=== PATIENT | male | born 1940 | race Caucasian/White ===

== ENCOUNTER 2020-03-09 14:57 | Outpatient (CLI) | payer MEDICARE, OTHER, SELFPAY ==
--- NOTE | ~2020-03-09 | XR_ITS ---
XR hip RT min 2V DATE: 03/09/2020 15:21 INDICATION: Right hip pain for 6 months TECHNIQUE: AP, lateral, crosstable lateral views of right hip COMPARISON: None FINDINGS: No fracture or dislocation, avascular necrosis or bone destruction of the right hip. Right hip joint space is relatively well preserved. The pubic symphysis and included right sacroiliac joint are unremarkable. IMPRESSION: No significant abnormality of right hip Reviewed, dictated and finalized at location A.
== END 2020-03-09 14:58 | disposition home or self-care (01) ==
LOC: ANHIMG 15:01
PROVIDERS: PCP Internal Medicine; Visit Provider Internal Medicine
DX: M25.551 Pain in right hip (principal)
CPT/HCPCS: 73502

== ENCOUNTER → 2020-04-27 08:59 | Outpatient (CLI) | payer MEDICARE, OTHER, SELFPAY ==
--- NOTE | ~2020-04-27 | MR_ITS ---
EXAMINATION: MR lumbar spine wo con DATE: 04/27/2020 09:45 INDICATION: Radiculopathy, lumbar region. TECHNIQUE: Magnetic resonance imaging (MRI) of the lumbar spine was performed without intravenous con trast. Sequences included sagittal T2-weighted FSE, sagittal T2-weighted FS FSE, sagittal T1-weighted FSE, and axial T2-weighted FSE. COMPARISON: None FINDINGS: There is 22 degrees dextroscoliosis of thoracolumbar spine and 13 degrees levoscoliosis of lumbar spine. There is 3 mm anterolisthesis of L2 on L3 and L3 on L4. Vertebral body heights are norm al. There is severely decreased disc height at T12-L1, moderately decreased disc height at L1-L2, L2- L3, and L3-L4, and severely decreased disc height at L4-L5 and L5-S1. The distal spinal cord signal i ntensity is normal. The conus medullaris is at L1. The bladder is markedly distended. The following d isc levels are specifically discussed: L1-L2: The disc is bulging and has an annular fissure. There is moderate bilateral facet joint osteoa rthritis. There is mild right and moderate left neural foraminal stenosis. There is mild central kilo l stenosis. L2-L3: The disc is bulging and has an annular fissure. There is severe bilateral facet joint osteoart hritis. There is mild bilateral neural foraminal stenosis. There is mild central canal stenosis. L3-L4: The disc is bulging and has an annular fissure. There is severe bilateral facet joint osteoart hritis. There is mild bilateral neural foraminal stenosis. There is mild central canal stenosis. L4-L5: The disc is bulging and has an annular fissure. There is severe right and mild left facet join t osteoarthritis. There is mild right and moderate left neural foraminal stenosis. There is mild cent ral canal stenosis. L5-S1: The disc is bulging and has an annular fissure. There is mild bilateral facet joint osteoarthr itis. There is mild bilateral neural foraminal stenosis. There is no central canal stenosis. IMPRESSION: 1. Severe lumbar spondylosis. 2. Thoracolumbar dextroscoliosis and lumbar levoscoliosis. Reviewed, dictated and finalized at location B.
== END ==
PROVIDERS: PCP Internal Medicine; Visit Provider Orthopaedic Surgery
DX: M47.26 Other spondylosis with radiculopathy, lumbar region (principal)
CPT/HCPCS: 72148

== ENCOUNTER → 2020-09-29 09:45 | Outpatient (CLI) | payer MEDICARE, OTHER, SELFPAY ==
--- NOTE | ~2020-09-29 | MR_ITS ---
EXAMINATION: MR cervical spine wo con EXAM DATE: 09/29/2020 10:36 INDICATION: Myelopathy myelopathy. TECHNIQUE: Multi-sequential, multiplanar MR images of the cervical spine were obtained without contra st. Axial T2, axial T2 MERGE sequence. Sagittal T1, T2, T2 fat saturation images also obtained. Th ere is no prior study for comparison. FINDINGS: There is moderate disc disease at C5-6 and 6-7. Moderate multilevel upper thoracic disc di sease. There is 2 mm anterolisthesis C7 on T1. The spinal cord signal intensity and intrinsic morphol ogy is normal. Cervicomedullary junction is normal in appearance. There are no suspicious marrow sign al abnormalities. Paraspinal soft tissue is unremarkable. Level by level evaluation: C2-C3: Disc does not extend beyond the endplate margin. Uncovertebral joint arthropathy: Mild left. Facet joint arthropathy: Mild bilateral. Neural foraminal stenosis: No stenosis. Central canal stenosis: No stenosis. C3-C4: Disc does not extend beyond the endplate margin. Uncovertebral joint arthropathy: Mild to moderate left, mild right. Facet joint arthropathy: Moderate to severe right, moderate left. Neural foraminal stenosis: Mild bilateral. Central canal stenosis: No stenosis. C4-C5: There is a mild diffuse disc bulge. Uncovertebral joint arthropathy: Mild to moderate bilateral. Facet joint arthropathy: Moderate bilateral. Neural foraminal stenosis: Mild to moderate right, mild left. Central canal stenosis: No stenosis. C5-C6: There is a mild diffuse disc bulge. Uncovertebral joint arthropathy: Moderate. Facet joint arthropathy: Moderate right, mild to moderate left. Neural foraminal stenosis: Moderate to severe right, mild to moderate left. Central canal stenosis: Mild. C6-C7: There is a mild diffuse disc bulge. Uncovertebral joint arthropathy: Moderate bilateral. Facet joint arthropathy: Mild to moderate bilateral. Neural foraminal stenosis: Mild to moderate right. Central canal stenosis: Minimal. C7-T1: There is a mild diffuse disc bulge. Uncovertebral joint arthropathy: Mild to moderate. Facet joint arthropathy: Moderate right, mild left. Neural foraminal stenosis: Mild right. Central canal stenosis: No stenosis. IMPRESSION: 1. Moderate cervical spondylosis. Reviewed, dictated and finalized at location B. [employer]
== END ==
PROVIDERS: PCP Internal Medicine; Visit Provider Psychiatry & Neurology Neurology
DX: G95.9 Disease of spinal cord, unspecified (principal); M47.812 Spondylosis without myelopathy or radiculopathy, cervical region
CPT/HCPCS: 72141

== ENCOUNTER 2020-12-15 15:12 | Emergency (ER) | payer MEDICARE, OTHER, SELFPAY ==
--- NOTE | 2020-12-15 15:15 | ED.GENADULT ---
HPI - General Adult General Chief complaint: Wound/Laceration Stated complaint: cut right thumb Time Seen by Provider: 12/15/20 15:14 Source: patient Mode of arrival: ambulatory Limitations: no limitations History of Present Illness HPI narrative: 80-year-old male patient presents to the [facility] with complaints of a laceration to the thumb today. Patient states he was trying to take a door off of a oven and states he lacerated his thumb. Patient states he thinks his last tetanus was 2012. Denies being diabetic. Related Data Home Medications Medication Instructions Recorded Confirmed aspirin 81 mg tablet,delayed 81 mg PO DAILY 08/04/19 09/11/20 release magnesium oxide 500 mg capsule 500 mg PO DAILY 08/04/19 09/11/20 multivitamin 1 tablet PO DAILY 08/04/19 09/11/20 tamsulosin 0.4 mg capsule 0.4 mg PO DAILY 08/04/19 09/11/20 acetaminophen 500 mg tablet 500 mg PO Q6H PRN 04/12/20 09/11/20 artificial tears(hypromellose) 0.3 1 drop EACH EYE BID PRN 04/12/20 09/11/20 % eye drops mometasone 0.1 % topical cream 1 applic TOPICAL DAILY 04/12/20 09/11/20 oxybutynin chloride 5 mg tablet 5 mg PO BID 04/12/20 09/11/20 fluticasone propionate 1 spray NASAL DAILY 12/15/20 12/15/20 Allergies Allergy/AdvReac Type Severity Reaction Status Date / Time diazepam Allergy Intermediate stronger Verified 12/15/20 15:21 than normal reaction Review of Systems Review of Systems: Narrative: CONSTITUTIONAL: Denies fever, chills, or sweats. EYES: Denies visual changes, redness, or discharge. ENT: Denies rhinorrhea, congestion, sore throat, or otalgia. CARDIOVASCULAR: Denies chest pain, palpitations, or edema. RESPIRATORY: Denies cough or dyspnea. GASTROINTESTINAL: Denies abdominal pain, nausea, vomiting, or diarrhea. GENITOURINARY: Denies dysuria or hematuria. SKIN: Denies rash or itching. Positive laceration to right thumb MUSCULOSKELETAL: Denies back pain, joint pain, or myalgia. NEUROLOGIC: Denies headache, numbness, or weakness. PSYCHIATRIC: Denies anxiety or depression. FOR[facility]LY [facility] Past Medical History Medical History Elevated prostate specific antigen [PSA] Gastro-esophageal reflux disease without esophagitis History of stroke (~01/24/18) Hx of ischemic vertebrobasilar artery thalamic stroke Hyperlipidemia Hypothyroidism Lumbar spondylosis Other dorsalgia Other fatigue Right lumbar radiculitis Surgical History Surgical History H/O hernia repair (~03/05/96) History of colonoscopy (~11/09/04) History of foot surgery (~12/06/04) cheilectomy History of hydrocelectomy (~05/1991) History of laser refractive surgery (~02/12/08) History of medial meniscus repair of left knee (~12/20/12) History of nasal surgery (~05/09/16) History of tonsillectomy (~1947) Vasectomy status (~1975) Family History Family History Sibling Patient's brother is in good health Family history of elevated blood lipids Family history of diabetes mellitus in first degree relative Father Family history of elevated blood lipids Family history of lung cancer, Onset Age: 62 Patient's father is Mother Patient's mother is Social History Social History Smoking status: Former smoker Second hand tobacco smoke exposure: No Smoking end date: 09/17/69 Alcohol intake: never Comments At the time of my signature I agree with nursing past medical history, surgical, social, and family history. There is no relevant family history pertinent to the presenting complaint. Exam Narrative: Exam Narrative: GENERAL: Well-appearing, well-nourished, and in no acute distress. HEAD: Normocephalic, atraumatic. EYES: PERRLA and EOMI. ENT: Nares clear, no rhinorrhea or epistaxis. Mucous membranes mo
[2020-12-15 15:41] VITALS: BP 174/74; PULSE 77; RESP 16; TEMP 36.4; O2SAT 98
[2020-12-15] MEDS: TETANUS,DIPHTHERIA,AC PERTUSSIS ADULT (0.5 ML) BOOSTRIX IM (15:44)
[2020-12-15 15:55] VITALS: BP 174/74; PULSE 77; RESP 16; TEMP 36.4; O2SAT 98
[2020-12-15 16:22] VITALS: BP 147/56
== END 2020-12-15 16:22 | disposition home or self-care (01) ==
PROVIDERS: Emergency Provider Nurse Practitioner Family; PCP Internal Medicine
DX: S61.011A Laceration without foreign body of right thumb without damage to nail, initial encounter (principal); W45.8XXA Other foreign body or object entering through skin, initial encounter; Z23 Encounter for immunization; Z87.891 Personal history of nicotine dependence; K21.9 Gastro-esophageal reflux disease without esophagitis; E78.5 Hyperlipidemia, unspecified; M47.816 Spondylosis without myelopathy or radiculopathy, lumbar region; Z79.82 Long term (current) use of aspirin
CPT/HCPCS: 12001; 90471; 90715; 99212; G0463